=== PATIENT | male | born 1985 | race Caucasian/White ===

== ENCOUNTER 2018-10-09 10:36 | Emergency (ER) | payer OTHER | END 2018-10-09 11:47 | disposition other institution (70) | LOC: ED 10:36 | DX: Z02.89 Encounter for other administrative examinations (principal) ==

== ENCOUNTER 2018-10-09 10:36 | Emergency (ER) | payer OTHER ==
[~2018-10-09] VITALS: Ht 190.5 cm; Wt 81.6 kg
[2018-10-09 10:43] VITALS: Ht 190.5 cm; Wt 81.6 kg
[2018-10-09 11:47] VITALS: BP 137/64
== END 2018-10-09 11:47 | disposition other institution (70) ==
LOC: ED 10:36
DX: S61.511A Laceration without foreign body of right wrist, initial encounter (principal); S00.01XA Abrasion of scalp, initial encounter; S09.8XXA Other specified injuries of head, initial encounter; F20.9 Schizophrenia, unspecified; X58.XXXA Exposure to other specified factors, initial encounter; Y93.89 Activity, other specified; Y92.89 Other specified places as the place of occurrence of the external cause; Y99.8 Other external cause status
CPT/HCPCS: J2001